=== PATIENT | male | born 1975 | race Caucasian/White ===

== ENCOUNTER 2022-02-20 12:08 | Emergency (ER) | payer BC ==
[~2022-02-20] VITALS: Ht 177.8 cm; Wt 83.9 kg
[~2022-02-20 12:08] MED LIST: Hydrocodone-Ap1 EA23 PO; Lovastatin10 MG PO; Zestril30 MG PO
[2022-02-20] MEDS ORDERED: Norco 5-325 Ta1 EACH PO (14:47)
[2022-02-20] MEDS ORDERED: CEPH500 PO (14:47)
== END 2022-02-20 15:02 | disposition home or self-care (01) ==
LOC: ER 12:08
DX: S68.621A Partial traumatic transphalangeal amputation of left index finger, initial encounter (principal); I10 Essential (primary) hypertension; W31.2XXA Contact with powered woodworking and forming machines, initial encounter; Z79.899 Other long term (current) drug therapy
CPT/HCPCS: 73140; 90471; 90714; 96374; 96375; 99283-25; J2405; J3010